=== PATIENT | male | born 2000 | race Caucasian/White ===

== ENCOUNTER 2023-07-20 16:18 | Outpatient (AMB) | payer OTHER, SELFPAY ==
--- NOTE | 2023-07-20 16:19 | A.OFFPC_ITS ---
Vital Signs 07/20/23 16:21 07/20/23 16:28 Height 5 ft 7 in Weight 138 lb BMI 21.6 BP 112/58 L 108/60 Blood Pressure Location Rt brachial Lt brachial Position Sitting Sitting Pulse 98 Pulse Source Pulse Oximeter Pulse Oximetry (%) 99 Oxygen Delivery Method Room Air Intake Visit Reasons: Annual PE Rescheduled+ NEEDS PHQ9/THRIVE Intake Note: Pt is here today for PE. Allergies No Known Allergies Allergy (Verified 07/20/23 16:21) Medication List - Last Re[facility]20[facility]23 [facility] albuterol sulfate 90 mcg/actuation 1 inh inhalation Q6-8H PRN cetirizine 10 mg PO DAILY fluticasone propionate 50 mcg/actuation 1 spray intranasal DAILY Tobacco use date assessed: 07/20/23 Dental Screening Dental Screen Date: 07/20/23 Did you have a dental visit in the last 12 months?: Yes Did you have a dental problem in the last 6 months where you did not have access to dental care?: No Was dental information given to patient?: Patient has dentist HPI Annual PE Rescheduled+ NEEDS PHQ9/THRIVE HPI Details Pt is here for a PE. Will order labs. Pt reports being bit by a tick approximately 1 year ago. He was treated for lyme but not tested. Will order tick testing. Pt is requesting STD testing, though denies any symptoms. Will order testing. [facility] Family History Father No problems noted. Mother No problems noted. Social History Housing: House Patient Tobacco Use Status: Current everyday Tobacco user e-Cigarette/Vaping Use: Currently Using Current occupational status: employed Cognitive needs: No Hearing needs: No Vision needs: No Questionnaire PHQ-9 Over the last 2 weeks, how often have you been bothered by any of the following problems? 1. Little interest or pleasure in doing things: not at all 2. Feeling down, depressed, or hopeless: not at all 3. Trouble falling or staying asleep, or sleeping too much: not at all 4. Feeling tired or having little energy: not at all 5. Poor appetite or overeating: not at all 6. Feeling bad about yourself - or that you are a failure or have let yourself or your family down: not at all 7. Trouble concentrating on things, such as reading the newspaper or watching television: not at all 8. Moving or speaking so slowly that other people could have noticed. Or the opposite - being so fidgety or restless that you have been moving around a lot more than usual: not at all 9. Thoughts that you would be better off or of hurting yourself in some way: not at all Total score: 0 Depression Screening Interpretation: Negative Depression Screening Done: Yes Source: Developed by Drs. Damian Batista, Syl Hurd, Matthew Santos and colleagues, with an educational jesus from [employer]. Thrive Questionnaire Date Thrive assessed: 07/20/23 I am a: Patient What is your living situation today?: I have a steady place to live Within the past 12 months, did the food you bought not last and you didn't have the money to get more?: Never true Within the past 12 months, did you worry whether your food would run out before you got money to buy more?: Never true Do you have trouble paying for medicines?: No Do you have trouble getting transportation to medical appointments?: No Do you have trouble paying your heating and electricity bill?: No Do you have trouble taking care of your child, family member or friend?: No Do you have trouble with day-to-day activities such as bathing, preparing meals, shopping, managing finances, etc.?: No Are you currently unemployed and looking for a job?: Yes Are you interested in more education?: No Please select the resources that you would like help with: Job search/training AUDIT C Alcohol Use Questionnaire (AUDIT-C) 1. How often do you have a drink containing alcohol?: Never 3. How often do you have six or more drinks on one occasion?: Never Total Score: 0 RODDY-7 AMB Questionnaire RODDY-7 Date RODDY - 7 assessed: 07/20/23 Feeling nervous, anxious, or on edge: 0 = Not at all Not being able to stop or control worryin = Not at all Worrying too much about different things: 0 = Not at all Trouble relaxin = Not at all Being so restless that it is hard to sit still: 0 = Not at all Becoming easily annoyed or irritable: 0 = Not at all Feeling afraid as if something awful might happen: 0 = Not at all Total RODDY-7 score (0-4 normal; 5-9 mild; 10-14 moderate; 15-21 severe): 0 Source: Developed by Drs. Damian Batista, Syl Hurd, Matthew Santos and colleagues, with an educational jesus from [employer]. Review of Systems Const Denies chills and Denies fever(s) Eyes Denies blurry vision ENT Denies vertigo, Denies dizziness and Denies sore throat Card Denies chest pain at rest, Denies chest pain with activity, Denies diaphoresis, Denies dyspnea and Denies dyspnea on exertion Resp Denies cough, Denies dyspnea, Denies dyspnea on exertion and Denies wheezing GI Denies abdominal pain, Denies melena, Denies hematochezia, Denies constipation, Denies diarrhea and Denies loose stools Denies hematuria Musc Denies numbness and Denies tingling Skin/Breast Denies lesions Neuro Denies vertigo, Denies dizziness, Denies numbness and Denies tingling Psych Denies anxiety, Denies depression, Denies homicidal ideation, Denies suicidal ideation and Denies other (substance abuse) Aller/Immun Denies wheezing Physical exam (Primary Care) Vital Signs: Last Vital Signs Pulse 98 07/20/23 16:21 BP 108/60 07/20/23 16:28 Pulse Ox 99 07/20/23 16:21 Oxygen Delivery Method Room Air 07/20/23 16:21 BMI result Body Mass Index 21.6 Tobacco/Smoking Status: Tobacco use Status Tobacco use date assessed 07/20/23 07/20/23 16:28 Patient Tobacco Use Status Current everyday Tobacco 07/20/23 16:28 Tobacco use type 07/20/23 16:28 e-Cigarette/Vaping Use Currently Using 07/20/23 16:28 PHQ-9: PHQ-9 Score PHQ-9: Total score 0 07/20/23 16:59 Depression Screening Interpretation: Negative Thrive Assessment: Date of Thrive Assessment Date Thrive assessed 07/20/23 07/20/23 16:59 Const General: cooperative Nutritional Appearance: well nourished Orientation/consciousness: patient oriented x3 HENMT Head: Yes normal to inspection, Yes normocephalic and Yes atraumatic Ears: TM's normal bilaterally Eyes General: appearance normal, both eyes and all related structures Alignment and Position: alignment normal and position normal Neck Neck: Yes normal visual inspection and Yes no lymphadenopathy Thyroid: Thyroid normal Resp Effort & Inspection: normal respiratory effort Auscultation: clear to auscultation bilaterally Cardio Rate: regular rate Rhythm: regular rhythm Heart sounds: S1 normal heart sound present, S2 normal heart sound present and no murmurs GI Palpation (GI): Soft to palpation and nontender Auscultation: normal bowel sounds Male General Exam: Yes normal external exam Penis: normal penis Scrotum: scrotum normal, testes descended bilaterally and no inguinal hernias Testes: no testicular mass Skin Rashes: no rashes Neuro General: patient oriented x3, moves all extremities, no focal motor deficits and deep tendon reflexes 2+ bilaterally Romberg Test: Negative Psych Appearance: grossly normal Mental Status: mental status grossly normal Speech and movement: Normal speech and movement present Affect: normal affect Attitude: cooperative Thought process: Normal thought process present Thought content: Normal thought content present Insight: Good insight present (Psych) Judgement: Good judgement present (Psych) Assessment and Plan Assessment & Plan (1) Physical exam: Code(s): Z00.00 - Encounter for general adult medical examination without abnormal findings Plan: Labs ordered (2) Screening for STDs (sexually transmitted diseases): Code(s): Z11.3 - Encounter for screening for infections with a predominantly sexual mode of transmission Plan: Labs ordered Plan The patient agreed to the use of a medical donation professional for this encounter. Scribed for SHERI Infante by Jessika Barnett medical donation professional, on 07/20/2023 at 16:40 EST. Orders: Orders Comprehensive [place]. Panel Fast Today Z00.00 - Encounter for general adult medical examination without abnormal findings TSH reflex Free T4 Today Z00.00 - Encounter for general adult medical examination without abnormal findings UA CC w/rflx Micro + Cult Today Z00.00 - Encounter for general adult medical examination without abnormal findings Tick-borne Disease Molecular Today Z00.00 - Encounter for general adult medical examination without abnormal findings HIV Ab/Ag Today Z11.3 - Encounter for screening for infections with a predominantly sexual mode of transmission Herpes Simplex Virus Ab IgG Today Z11.3 - Encounter for screening for infections with a predominantly sexual mode of transmission Complete Blood Count Auto Diff Today Z00.00 - Encounter for general adult medical examination without abnormal findings Lipid Panel Today Z00.00 - Encounter for general adult medical examination without abnormal findings Syphilis Screen Today Z11.3 - Encounter for screening for infections with a predominantly sexual mode of transmission CT NG by PCR Today Z11.3 - Encounter for screening for infections with a predominantly sexual mode of transmission Hepatitis A,B,C Profile Today Z11.3 - Encounter for screening for infections with a predominantly sexual mode of transmission Coding Level of Care Code Est Pt Prev Care 18-39y(26160) Diagnoses Physical exam Z00.00 Screening for STDs (sexually transmitted diseases) Z11.3
[2023-07-20 16:21] VITALS: BP 112/58; PULSE 98; O2SAT 99; BMI 21.6
[2023-07-20 16:28] VITALS: BP 108/60
== END 2023-07-20 16:59 | disposition home or self-care (01) ==
PROVIDERS: Visit Provider Nurse Practitioner Family
DX: Z00.00 Encounter for general adult medical examination without abnormal findings (principal); Z11.3 Encounter for screening for infections with a predominantly sexual mode of transmission
CPT/HCPCS: 99395

== ENCOUNTER 2023-07-26 11:07 | Outpatient (REF) | payer OTHER, SELFPAY ==
[2023-07-26 13:08] LABS: MANUAL DIFF FLAG NO
[2023-07-26 13:27] LABS: Basophils Absolute Auto 0.1 X10*3/uL (0.0-0.2); Basophils Percent Auto 1.2 % (0-2); Eosinophils Absolute Auto 0.1 X10*3/uL (0.0-0.4); Eosinophils Percent Auto 1.9 % (0-4); Hematocrit 41.9 % (42.0-52.0); Hemoglobin 13.9 g/dl (14.0-18.0); Imm Gran Abs Auto 0.02 X10*3/uL (0.00-0.03); Imm Gran Pct Auto 0.5 % (0.0-0.4); Lymphocytes Absolute Auto 1.3 X10*3/uL (1.2-4.9); Lymphocytes Percent Auto 31.7 % (20-40); Mean Corpuscular HGB Conc 33.2 g/dl (31.0-36.0); Mean Corpuscular Hemoglobin 28.8 pg (27.0-33.0); Mean Corpuscular Volume 86.7 fL (80.0-98.0); Mean Platelet Volume 10.7 fL (9.4-12.4); Monocytes Absolute Auto 0.5 X10*3/uL (0.1-1.2); Monocytes Percent Auto 10.7 % (2-11); Neutrophils Absolute Auto 2.3 x10*3/uL (2.0-8.3); Platelet Count 236 X10*3/uL (160-400); Red Blood Count 4.83 X10*6/uL (4.60-5.80); Red Cell Distribution Width 12.6 % (11.0-16.0); White Blood Count 4.2 X10*3/uL (4.8-10.8)
[2023-07-26 13:40] LABS: Alanine Aminotransferase 12 U/L (0-40); Albumin Level 4.9 g/dL (3.5-5.0); Alkaline Phosphatase 70 U/L (39-117); Anion Gap 13 (12-20); Aspartate Amino Transferase 24 U/L (5-37); Bilirubin Total 0.4 mg/dL (0.0-1.0); Blood Urea Nitrogen 10 mg/dL (9-16); Calcium 9.6 mg/dL (8.4-10.2); Carbon Dioxide 25 mmol/L (22-29); Chloride 104 mmol/L (96-108); Cholesterol 156 mg/dL (<200); Estimated Glomerular Filt Rate > 60; Glucose Fasting 94 mg/dL (60-99); HDL Cholesterol 46 mg/dL (>40); LDL Cholesterol Calculated 100 mg/dL (<100); Potassium 4.1 mmol/L (3.3-5.1); Sodium 138 mmol/L (135-145); Total Protein 7.4 g/dL (6.5-8.0); Triglycerides 54 mg/dL (<150)
[2023-07-26 13:52] LABS: Syphilis Screen Nonreactive (Nonreactive)
[2023-07-26 13:57] LABS: TSH reflex Free T4 0.96 uIU/mL (0.32-4.0)
[2023-07-26 13:58] LABS: Appearance Urine Clear; Color Urine Yellow; Glucose Urine UA Negative (Negative); Leukocyte Esterase Urine Negative (Negative); Nitrite Urine Negative (Negative); PH 7.5 (5.0-9.0); Urine Blood Negative (Negative); Urine Ketones Negative (Negative); Urine Protein Negative (Neg-Trace)
[2023-07-27 04:43] LABS: HBS Num1 0.46 mIU/mL (0-7.99); HBc Num1 0.05 S/CO (0.00-0.79); HBsAGNum1 0.28 S/CO (0.00-0.99); HIV AB/AG Nonreactive (Nonreactive); HIV Num 1 0.04 S/CO (0.00-0.99); Hepatitis A Antibody IgM 0.13 Index (0-0.79); Hepatitis B Core Antibody Nonreactive (Nonreactive); Hepatitis B Surface Antigen Negative (Negative); ~HepC Num1 0.12 S/CO (0.00-0.79); ~Hepatitis A Antibody IgM Nonreactive (Nonreactive); ~Hepatitis B Surface Antibody NONREACTIVE (Nonreactive); ~Hepatitis C Antibody Nonreactive (Nonreactive)
[2023-07-27 23:04] LABS: A. Phagocytphilium DNA,RT-PCR NOT DETECTED (NOT DETECTED); Babesia Microti DNA, RT-PCR NOT DETECTED (NOT DETECTED); Borrelia Miyamotoi,DNA RT-PCR NOT DETECTED (NOT DETECTED); E.Chaffeensis DNA RT-PCR NOT DETECTED (NOT DETECTED); Lyme(Borrelia ssp)DNA RT-PCR NOT DETECTED (NOT DETECTED)
[2023-07-28 22:18] LABS: Herpes Simplex Type 1 IgG <0.90 index; Herpes Simplex Type 2 IgG <0.90 index
== END 2023-07-26 11:08 | disposition home or self-care (01) ==
LOC: HO.HMGCLDS 11:07
PROVIDERS: PCP Nurse Practitioner Family; Visit Provider Nurse Practitioner Family
DX: Z00.00 Encounter for general adult medical examination without abnormal findings (principal); Z11.3 Encounter for screening for infections with a predominantly sexual mode of transmission; Z11.59 Encounter for screening for other viral diseases; Z13.220 Encounter for screening for lipoid disorders; Z13.29 Encounter for screening for other suspected endocrine disorder
CPT/HCPCS: 36415; 80053; 80061; 81003; 84443; 85025; 86695; 86696; 86704; 86706; 86709; 86780; 86803; 87340; 87389; 87468; 87469; 87478; 87484; 87798

== ENCOUNTER 2024-07-24 09:08 | Outpatient (AMB) | payer OTHER, SELFPAY ==
[2024-07-24 09:13] VITALS: BP 110/70; PULSE 72; O2SAT 98; BMI 21.6
--- NOTE | 2024-07-24 09:13 | A.OFFPC_ITS ---
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 Accompanied by: Self / Same As Patient Allergies No Known Allergies Allergy (Verified 07/24/24 09:14) Medication List - Last Reconciled 07/24/24 by Gunnar Lay [facility]- albuterol sulfate 90 mcg/actuation 1 inh inhalation Q6-8H PRN cetirizine 10 mg PO DAILY fluticasone propionate 50 mcg/actuation 1 spray intranasal DAILY Tobacco use date assessed: 07/24/24 Dental Screening Dental Screen Date: 07/24/24 Did you have a dental visit in the last 12 months?: Yes Did you have a dental problem in the last 6 months where you did not have access to dental care?: No Was dental information given to patient?: Patient has dentist HPI PE HPI Details History of Present Illness The patient is a 23-year-old male presenting for a routine physical examination. Health Maintenance - Discussion on the importance of fastin g before lab work and ensuring adequate hydration. - Reminder to report to the lab technici an all tests ordered from prior appointments. - Suggestion to receive a flu vaccine wa s made but declined by the patient. Social History - Recreational activity: Enjoys fishing. - Cannabis use: History of cannabis use, both in smoke and wax form. - Patient is trying to reduce smoking du e to seasonal changes. Review of Systems - General: Denies fever, chills, weight loss. - Gastrointestinal: Denies nausea, vomit ing, diarrhea, constipation, blood in stool. - Respiratory: Denies chest pain. - Skin: Reports improvement in finger sw elling after treatment. - Psychiatric: Reports mood changes duri ng specific seasons, denies severe depression. denies anxiety Physical Exam General: Cooperative, healthy appearing, comfortable, no acute distress and well developed Orientation: Patient oriented x3 Limitations: No limitations Head: Normal to inspection Ears: small amt of cerumen noted bilat Nose: Normal external nose present Face and sinus: Normal facial exam Eyes: Appearance normal, both eyes and all related structures Neck: Normal visual inspection and Yes full ROM Respiratory: Normal respiratory effort and able to speak in complete sentences. Clear to auscultation bilaterally Cardiovascular: Regular rate and rhythm. Normal S1 and S2 GI: Normal to inspection. Soft to palpation and nontender Skin: No rashes or lesions noted Neuro: Patient oriented x3 Extremities: Normal to inspection Results Plan - Seasonal Affective Disorder: Monitor s ymptoms and consider environmental or lifestyle changes to mitigate seasonal effects. - Earwax Impaction: Recommend usage of a n [id number] earwax removal kit, such as Debrox, to manage the wax build-up. - Routine Health Maintenance: Continue r egular wellness checks and complete ordered lab tests after fasting. Patient was informed and verbally consented to the use of an ambient scribe for clinic note documentation during this visit. Discussion Notes The patient was advised on the importance of proper ear cleaning techniques and the use of earwax removal kits to avoid compaction problems. Regarding cannabis use, I addressed the patient?s attempts to reduce use, offering support and advising on the benefits of reduction. The significance of staying hydrated prior to lab work was emphasized, ensuring fasting guidelines are followed. Influenza vaccination declined by the patient at this time. Patient Instructions - Follow earwax removal instructions as provided on the kit packaging. Avoid using Q-tips inside the ear canal. - Maintain hydration and adhere to fasti ng requirements before attending lab appointments. - Continue observing your own mental hea lth patterns associated with seasonal changes and consider discussing measures to alleviate symptoms. - Perform self-testicular examinations r egularly and report any abnormalities. [facility] Surgical History S/P laparoscopic appendectomy Family History Father No problems noted. Mother No problems noted. Social History Housing: House Patient Tobacco Use Status: Current everyday Tobacco user e-Cigarette/Vaping Use: Currently Using Current occupational status: employed Cognitive needs: No Hearing needs: No Vision needs: No Questionnaire PHQ-9 Over the last 2 weeks, how often have you been bothered by any of the following problems? 1. Little interest or pleasure in doing things: not at all 2. Feeling down, depressed, or hopeless: not at all 3. Trouble falling or staying asleep, or sleeping too much: not at all 4. Feeling tired or having little energy: not at all 5. Poor appetite or overeating: not at all 6. Feeling bad about yourself - or that you are a failure or have let yourself or your family down: not at all 7. Trouble concentrating on things, such as reading the newspaper or watching television: not at all 8. Moving or speaking so slowly that other people could have noticed. Or the opposite - being so fidgety or restless that you have been moving around a lot more than usual: not at all 9. Thoughts that you would be better off or of hurting yourself in some way: not at all Total score: 0 Depression Screening Interpretation: Negative Depression Screening Done: Yes [id number] - PHQ-9 Billing: Yes Source: Developed by Drs. Damian Batista, Syl Hurd, Matthew Santos and colleagues, with an educational jesus from [employer]. Thrive Questionnaire Date Thrive assessed: 07/24/24 I am a: Patient What is your living situation today?: I have a steady place to live Within the past 12 months, did the food you bought not last and you didn't have the money to get more?: Never true Within the past 12 months, did you worry whether your food would run out before you got money to buy more?: Never true Do you have trouble paying for medicines?: No Do you have trouble getting transportation to medical appointments?: No Do you have trouble paying your heating and electricity bill?: No Do you have trouble taking care of your child, family member or friend?: No Do you have trouble with day-to-day activities such as bathing, preparing meals, shopping, managing finances, etc.?: No Are you currently unemployed and looking for a job?: Yes Are you interested in more education?: No Please select the resources that you would like help with: Job search/training Currently or been in a relationship where the following occur: No concerns reported and I choose not to answer THRIVE Score: 0 AUDIT C Alcohol Use Questionnaire (AUDIT-C) 1. How often do you have a drink containing alcohol?: Never 3. How often do you have six or more drinks on one occasion?: Never Total Score: 0 Score Reviewed/Action Taken: Yes RODDY-7 AMB Questionnaire RODDY-7 Date RODDY - 7 assessed: 07/24/24 Feeling nervous, anxious, or on edge: 0 = Not at all Not being able to stop or control worryin = Not at all Worrying too much about different things: 0 = Not at all Trouble relaxin = Not at all Being so restless that it is hard to sit still: 0 = Not at all Becoming easily annoyed or irritable: 0 = Not at all Feeling afraid as if something awful might happen: 0 = Not at all Total RODDY-7 score (0-4 normal; 5-9 mild; 10-14 moderate; 15-21 severe): 0 Source: Developed by Drs. Damian Batista, Syl Hurd, Matthew Santos and colleagues, with an educational jesus from [employer]. RODDY-7 Assessment Billing RODDY-7 Assessment Tool: RODDY-7 Assessment 60489 Physical exam (Primary Care) Vital Signs: Last Vital Signs Pulse 72 07/24/24 09:13 BP 110/70 07/24/24 09:13 Pulse Ox 98 07/24/24 09:13 BMI result Body Mass Index 21.6 Tobacco/Smoking Status: Tobacco use Status Tobacco use date assessed 07/24/24 07/24/24 09:15 Patient Tobacco Use Status Current everyday Tobacco 07/24/24 09:15 Tobacco use type 07/20/23 16:59 e-Cigarette/Vaping Use Currently Using 07/24/24 09:15 PHQ-9: PHQ-9 Score PHQ-9: Total score 0 07/24/24 09:15 Depression Screening Interpretation: Negative Thrive Assessment: Date of Thrive Assessment Date Thrive assessed 07/24/24 07/24/24 09:15 Currently or been in a relationship where the following occur: No concerns reported and I choose not to answer Coding Level of Care Code Est Pt Prev Care 18-39y(46153) Diagnoses Physical exam Z00.00 Screening for STDs (sexually transmitted diseases) Z11.3 Anemia D64.9 Additional Codes RODDY-7 Assessment Billing - RODDY-7 Assessment Tool: RODDY-7 Assessment [id number] ([id number]) PHQ-9 - 55985 - PHQ-9 Billing: Yes ([id number]) Assessment & Plan Assessment & Plan (1) Physical exam: Code(s): Z00.00 - Encounter for general adult medical examination without abnormal findings Category: Medical (2) Screening for STDs (sexually transmitted diseases): Code(s): Z11.3 - Encounter for screening for infections with a predominantly sexual mode of transmission Category: Medical (3) Anemia: Code(s): D64.9 - Anemia, unspecified Category: Medical Plan . Orders: Orders Comprehensive [place]. Panel Fast Today Z00.00 - Encounter for general adult medical examination without abnormal findings Lipid Panel Today Z00.00 - Encounter for general adult medical examination without abnormal findings CT NG by PCR Today Z11.3 - Encounter for screening for infections with a predominantly sexual mode of transmission Syphilis Screen Today Z11.3 - Encounter for screening for infections with a predominantly sexual mode of transmission IRON PROFILE Today D64.9 - Anemia, unspecified Ferritin Today D64.9 - Anemia, unspecified Reticulocyte Count Today D64.9 - Anemia, unspecified Lactate Dehydrogenase Today D64.9 - Anemia, unspecified Complete Blood Count Auto Diff Today Z00.00 - Encounter for general adult medical examination without abnormal findings TSH reflex Free T4 Today Z00.00 - Encounter for general adult medical examination without abnormal findings UA CC w/rflx Micro + Cult Today Z00.00 - Encounter for general adult medical examination without abnormal findings HIV Ab/Ag Today Z11.3 - Encounter for screening for infections with a predominantly sexual mode of transmission Vitamin B12 and Folate Today D64.9 - Anemia, unspecified
--- OUTSIDE RECORDS SUMMARY | 2024-07-24 09:16 | XMS_ITS | Data Portability ---
Author Organization [place] [facility], [address] Address [address] [place] [address] Assessment No assessment recorded. Plan of Treatment Reminders Order Date Submit Date Provider Last Modified By Organization Details Last Modified Time Details Appointments None recorded. Lab urinalysis, dipstick 2022 023 [email or web address] 5 [facility] [address], [address] [place], [address], 3 17:56:35 chlamydia trachomatis + neisseria gonorrhoeae + trichomonas vaginalis DNA panel, JOHNY+probe, unspecified specimen 2022 023 [place] [facility] [address] [place] [address], [address], 3 08:08:51 culture, urine 2022 023 [facility], [address] [place] [address], [address], 3 06:07:53 unlisted lab - CT/GC/TV JOHNY+mycopla smas urine 2022 023 [facility], [address] [place] [address], [address], 3 10:06:19 Referral None recorded. Procedures None recorded. Surgeries None recorded. Imaging None recorded. Medication Orders doxycycline hyclate 100 mg capsule 2022 023 [email or web address] 5 [facility], [address] [place], [address], 16:59:52 doxycycline hyclate 100 mg tablet 2022 023 [facility] [address] [facility], [place], [address], 09:03:40 Patient TargetsNo targets recorded. Patient Instructions Encounter Date Encounter Id Patient Instructions Last Modified By Organization Details Last Modified Time 03/16/2023 [id number] urethritis: care instructions [email or web address] Not available 03/16/2023 17:57:54 gonorrhea and chlamydia: about these tests [email or web address] Not available 03/16/2023 17:57:54 gonorrhea: care instructions [email or web address] Not available 03/16/2023 17:57:54 chlamydia: care instructions [email or web address] Not available 03/16/2023 17:57:54 sexually transmitted disease education [email or web address] Not available 03/16/2023 17:57:54 safer sex: care instructions [email or web address] Not available 03/16/2023 17:57:54 Take the medication as prescribed. No sex until lab reports are known, partner treated if needed and you follow-up with your doctor. Follow-up with your doctor in one week. You will need additional testing for other sexually transmitted diseases such as HIV, hepatitis, syphilis which were not done at [facility]. Seek Emergency Medical evaluation for any worsening symptoms, particularly for high fever, shaking chills, rash, abdominal or flank pain, trouble urinating, testicular pain, vomiting, joint pain/swelling or redness. [email or web address] Not available 03/16/2023 18:00:15 05/04/2023 [id number] We are sending out STI testing for you today. STI testing can take anywhere from 5-7 days to be reported by the lab. If you do not hear from us regarding you testing after 7 days please contact our office. You should avoid any sexual contact until these results are received. If you test positive, and will need treatment will be provide guidance at that time. Remember, that if you are positive ALL sexual partners will need to be treated even before restarting sexual relations. If you don't you will be re infected. Thank you for using [facility], if you have any questions or concerns please reach out us. [email or web address] Not available 05/04/2023 08:48:40 Reason for Referral None Reported. Results Created Date Observation Date Name Description Value Unit Range Abnormal Flag Note LastModifiedBy Organization Detail LastModifiedTime 03/16/2003/19/2023 URINE CULTU RE, ROUTI NE urine culture, routine FINAL REPORT Not Available [facility] ([facility]) [address] [place], [address], 03/19/2023 06:07:53 03/16/2003/19/2023 URINE CULTU RE, ROUTI NE result 1 COMMEN T Cultu re shows less than 10,00 0 colon y formi ng units of bacte js per rebeca liter of urine . This colon y count is not gener ally consi dered to be clini lindsey signi fican t. Not Available [facility] ([facility]) [address] [place], [address], 03/19/2023 06:07:53 03/16/2003/19/2023 CT, NG, TRICH VAG BY JOHNY chlamydia by JOHNY POSITI VE negati ve abnormal Not Available [facility] ([facility]) [address] [place], [address], 03/19/2023 08:08:51 03/16/20 23 03/19/2023 CT, NG, TRICH VAG BY JOHNY gonococcus by JOHNY NEGATI VE negati ve Not Available [facility] ([facility]) [address] [place], [address], 03/19/2023 08:08:51 03/16/20 23 03/19/2023 CT, NG, TRICH VAG BY JOHNY trich vag by JOHNY NEGATI VE negati ve Not Available [facility] ([facility]) [address] [place], [address], 03/19/2023 08:08:51 03/16/20 23 03/16/2023 urina lysis , dipst ick Unknown Analyte Normal = light yellow Not Available [address] [place], [address], 03/16/2023 17:36:33 03/16/20 23 03/16/2023 urina lysis , dipst ick Unknown Analyte Yellow Not Available [address] [place] [address] [address] [place], [address], 03/16/2023 17:36:33 03/16/20 23 03/16/2023 urina lysis , dipst ick Unknown Analyte Normal = clear Not Available [facility] [address] [place], [address], 03/16/2023 17:36:33 03/16/20 23 03/16/2023 urina lysis , dipst ick Unknown Analyte Clear Not Available [address] [place] [address] [address] [place], [address], 03/16/2023 17:36:33 03/16/20 23 03/16/2023 urina lysis , dipst ick Unknown Analyte Normal = negati ve Not Available [facility] [address] [place], [address], 03/16/2023 17:36:33 03/16/20 23 03/16/2023 urina lysis , dipst ick Unknown Analyte Negati ve Not Available [address] [place], [address], 03/16/2023 17:36:33 03/16/20 23 03/16/2023 urina lysis , dipst ick Unknown Analyte Normal = Negati ve Not Available [address] [place], [address], 03/16/2023 17:36:33 03/16/20 23 03/16/2023 urina lysis , dipst ick Unknown Analyte Negati ve Not Available [address] [place], [address], 03/16/2023 17:36:33 03/16/20 23 03/16/2023 urina lysis , dipst ick Unknown Analyte Normal = Negati ve Not Available [address] [place], [address], 03/16/2023 17:36:33 03/16/20 23 03/16/2023 urina lysis , dipst ick Unknown Analyte Negati ve Not Available [address] [place], [address], 03/16/2023 17:36:33 03/16/20 23 03/16/2023 urina lysis , dipst ick Unknown Analyte Normal = 1.010, 1.015, 1.020 Not Available [facility] [address] [place], [address], 03/16/2023 17:36:33 03/16/20 23 03/16/2023 urina lysis , dipst ick Unknown Analyte 1.015 Not Available [address] [place] [address] [address] [place], [address], 03/16/2023 17:36:33 03/16/20 23 03/16/2023 urina lysis , dipst ick Unknown Analyte Normal = Negati ve Not Available [address] [place], [address], 03/16/2023 17:36:33 03/16/20 23 03/16/2023 urina lysis , dipst ick Unknown Analyte Trace- intact Not Available [address] [place], [address], 03/16/2023 17:36:33 03/16/20 23 03/16/2023 urina lysis , dipst ick Unknown Analyte Normal = 6.5, 7.0, 7.5, 8.0 Not Available [address] [place], [address], 03/16/2023 17:36:33 03/16/20 23 03/16/2023 urina lysis , dipst ick Unknown Analyte 7.[address] [facility] [address] [place], [address], 03/16/2023 17:36:33 03/16/20 23 03/16/2023 urina lysis , dipst ick Unknown Analyte Normal = Negati ve Not Available erica g[address] [place], [address], 03/16/2023 17:36:33 03/16/20 23 03/16/2023 urina lysis , dipst ick Unknown Analyte Negati ve Not Available [facility] [address] [place], [address], 03/16/2023 17:36:33 03/16/20 23 03/16/2023 urina lysis , dipst ick Unknown Analyte Normal = 0.2, 1.0 Not Available [facility] [address] [place], [address], 03/16/2023 17:36:33 03/16/20 23 03/16/2023 urina lysis , dipst ick Unknown Analyte 0.2 E.U./d L Not Available [facility] [place], [address], 03/16/2023 17:36:33 03/16/20 23 03/16/2023 urina lysis , dipst ick Unknown Analyte Normal = Negati ve Not Available [address] [place], [address], 03/16/2023 17:36:33 03/16/20 23 03/16/2023 urina lysis , dipst ick Unknown Analyte Negati ve Not Available [address] [place], [address], 03/16/2023 17:36:33 03/16/20 23 03/16/2023 urina lysis , dipst ick Unknown Analyte Normal = Negati ve Not Available [address] [place], [address], 03/16/2023 17:36:33 03/16/20 23 03/16/2023 urina lysis , dipst ick Unknown Analyte Negati ve Not Available _erica subramanian [address] [place], [address], 03/16/2023 17:36:33 05/04/20 23 05/06/2023 CT/GC /TV JOHNY+M YCOPL ASMAS URINE mycoplasma genitalium JOHNY NEGATI VE negati ve Not Available [facility] ([facility]) [address] [place], [address], 05/07/2023 10:06:19 05/04/20 23 05/06/2023 CT/GC /TV JOHNY+M YCOPL ASMAS URINE mycoplasma hominis JOHNY NEGATI VE negati ve Not Available [facility] ([facility]) [address] [place], [address], 05/07/2023 10:06:19 05/04/20 23 05/06/2023 CT/GC /TV JOHNY+M YCOPL ASMAS URINE ureaplasma spp JOHNY NEGATI VE negati ve Not Available [facility] ([facility]) [address] [place], [address], 05/07/2023 10:06:19 05/04/20 23 05/07/2023 CT/GC /TV JOHNY+M YCOPL ASMAS URINE trich vag by JOHNY NEGATI VE negati ve Not Available [facility] ([facility]) [address] [facility], [place], [address], 05/07/2023 10:06:19 05/04/20 23 05/07/2023 CT/GC /TV JOHNY+M YCOPL ASMAS URINE chlamydia trachomatis, JOHNY NEGATI VE negati ve Not Available [facility] ([facility]) [address] [facility], [place], [address], 05/07/2023 10:06:19 05/04/20 23 05/07/2023 CT/GC /TV JOHNY+M YCOPL ASMAS URINE neisseria gonorrhoeae, JOHNY NEGATI VE negati ve Not Available [facility] ([facility]) [address] [facility], [place], [address], 05/07/2023 10:06:19 Result Notes None recorded. Problems Name Problem SNOMED Code Status Onset Date Resolution Date Notes Provider Name and Address Organization Details Recorded Time Asthma 813607618 Completed 023 03/16/2023 [place] [facility] 3 17:22:26 Problem Notes None recorded. Medical Equipment None Reported. Allergies No known drug allergies Medications Name Sig Start Date Stop Date Status Note LastModified by Organization Details LastModified Time doxycycline hyclate 100 mg capsule TAKE ONE CAPSULE BY MOUTH TWICE A DAY FOR 7 DAYS active Not Available Not Available No t Available prednisone 50 mg tablet TAKE ONE TABLET BY MOUTH EVERY DAY FOR 4 DAYS 03/16 completed Not Available Not Available Not Available doxycycline hyclate 100 mg tablet Take 1 tablet twice a day by oral route for 7 days. active Not Available Not Available No t Available Ventolin HFA 90 mcg/actuati on aerosol inhaler TAKE 1-2 PUFFS EVERY 4 HOURS NEEDED FOR WHEEZING active Not Available Not Available No t Available Aerochamber Plus Flow-Vu USE WITH ALBUTEROL DIRECTED 03/16 completed Not Available Not Available Not Available Vitals Date Recorded Body height Respiratory rate Body mass index (BMI) Body weight Oxygen saturation Oxygen saturation in Arterial blood by Pulse oximetry Heart rate Body temperature Systolic blood pressure Diastolic blood pressure Provider Name and Address Organization Details Last Updated DateTime 3 167.64 cm 18 /min 20.2 kg/m2 89278.0 5 g 98 % 98 % 83 /min 98.3 [degF] 99 mm[Hg] 60 mm[Hg] NED BRODY [facility] 3 17:28:30 Date Recorded Body height Body mass index (BMI) Body weight Heart rate Oxygen saturation Oxygen saturation in Arterial blood by Pulse oximetry Body temperature Systolic blood pressure Diastolic blood pressure Provider Name and Address Organization Details Last Updated DateTime 3 167.64 cm 21 kg/m2 67303.0 1 g 67 /min 100 % 100 % 98.4 [degF] 98 mm[Hg] 60 mm[Hg] UZAIR GR NP [address], [place], [address], [facility] 3 08:37:30 Social History Question Answer Notes LastModified by Naytevizat ion Details LastModified Time Tobacco Smoking Status Never Smoker NED BRODY [facility], [facility] 03/16/2023 17:23:26 What Is Your Level Of Alcohol Consumption? None Information not available 03/16/2023 Are You Currently Employed? Yes Information not available 03/16/2023 Which Illicit Or Recreational Drugs Have You Used? Marijuana Information not available 03/16/2023 Do You Use Any Illicit Or Recreational Drugs? Yes Information not available 03/16/2023 Have You Recently Traveled Abroad? No Information not available 03/16/2023 Are You Currently In School? No Information not available 03/16/2023 Sex: Unknown Functional Status None recorded. Mental Status None recorded. Family History Relationship Description Onset Age of this Age Resolved Age Notes LastModified by Organization Details LastModified Time Father No current problems or disability [email or web address] Not available 03/2023 17:22:42 Mother No current problems or disability [email or web address] Not available 03/2023 17:22:43 Paternal Grandmother Diabetes mellitus [email or web address] Not available 03/16 17:23:00 Medical History No medical history recorded. Past Encounters Encounter ID Performer Location Encounter Start Date Encounter Closed Date Diagnosis/Indication Diagnosis SNOMED-CT Code Diagnosis ICD10 Code [id number] [address] [place] [address] 05/02/2022 16:11:57 05/02/2022 16:29:49 [id number] Ana Silva MD [facility] [address] [place] [address] 03/16/2023 16:27:12 03/16/2023 18:04:44 Urethritis [id number] N34.2 [id number] [place] [facility] [address] [address] [place] [address] 05/04/2023 08:05:57 05/04/2023 08:50:30 Chlamydial infection 850368837 A74.9 Health Concerns Section Related Observation LastModified by Organization Detai ls LastModified Time None Recorded Concern Status LastModified by Organization Details LastModified Time None Recorded Advance Directives Directive None Recorded Payers Encounter Date Sequence Insurance Name Policy Number Policy Smith Covered Member ID Smith Member ID Guarantor Name 03/16/[address] [facility] (MEDICAID HMO) PATIENCEO Jam Hamiltonperto [id number] Max Lenard 05/04/2023 1 [facility] (MEDICAID HMO) [place] Max Lenard [id number] Max Lenard Notes Date Note Type Note Provider Name and Address Organization Details Recorded Time 3 text/html Urinary Problems-MaleReported bypatient.source of patient informationInformation obtained from patient; Patient arrived at Urgent Care ambulatory Location:penis Quality:burning Severity:moderate Duration:constant; 2 weeks. Onset/Timing:gradual Context:sexually active;unprotected intercourse Modifying Factors:nothing gives relief Associated Symptoms:no penile lesions/sores; no scrotal lesions/sores; no penile discharge; no flank pain; no jaundice; no blood in the urine; no change in urine appearance; no urine odor; no fever/chills; no fatigue; no myalgia;burning sensation during urinationNotes:22 year old male presenting for evaluation of dysuria for the past 2 weeks. He was informed that his partner tested positive for chlamydia 2 days ago. He had unprotected intercourse with this partner. No fever, chills, rash, swollen glands, eye symptoms, sore throat, fever, chills or joint pain/redness/swelling. No penile or scrotal lesions. No testicular pain, masses or swelling. No swollen glands. No nausea, vomiting, diarrhea, urinary frequency/urgency, hematuria, urethral discharge, abdominal or flank pain. The patient is requesting treatment only for chlamydia and to hold on additional treatment pending lab reports. Ana Silva MD [address] [place], [address], [facility] [facility] 03/17/2023 17:07:08 3 text/html Two months ago, patient was seen here and tested positive for chlamydia and was treated with doxy for 7 days. Partner was not adequately treated (she missed some days) and as a result patient worries he may be positive. Wonders whether he should be retested or get a second course of doxy. Denies any symptom. He was also asymptomatic when he was first tested positive. [place] [facility] [address] [place], [address], [facility] 05/04/2023 09:04:42
== END 2024-07-24 09:45 | disposition home or self-care (01) ==
PROVIDERS: PCP Nurse Practitioner Family; Visit Provider Nurse Practitioner Family
DX: Z00.00 Encounter for general adult medical examination without abnormal findings (principal); Z11.3 Encounter for screening for infections with a predominantly sexual mode of transmission; D64.9 Anemia, unspecified

== ENCOUNTER → 2024-07-24 09:08 | Outpatient (BNVA) | payer OTHER, SELFPAY | PROVIDERS: PCP Nurse Practitioner Family; Visit Provider Nurse Practitioner Family | DX: Z00.00 Encounter for general adult medical examination without abnormal findings (principal); Z11.3 Encounter for screening for infections with a predominantly sexual mode of transmission; D64.9 Anemia, unspecified | CPT/HCPCS: 96127; 99395 ==

== ENCOUNTER 2025-05-28 06:42 | Outpatient (AMB) | payer BC, SELFPAY ==
--- OUTSIDE RECORDS SUMMARY | 2025-05-28 06:51 | XMS_ITS | Encounter Summary ---
Author Organization [facility] Address [address] [place] [address] Phone Care Team Providers Care Blindstitch Lining Feller Name Role Phone Unavailable Primary Care Provider Unavailabl e Encounter Details Date Type Department Care Team (Late st Contact Info) Description 03/24/2017 Documentation [facility] Family Medicine [facility] [place], [place] [phone] Family Medicine, Physician [facility] [place] [address] Social History Tobacco Use Types Packs/Day Years Used Date Smoking Tobacco: Never Comments:Never smoker Sex and Gender Information Value Date Recorded Sex Assigned at Not on file Legal Sex Male 5:23 PM EDT Gender Identity Not on file Sexual Orientation Not on file documented as of this encounter Plan of Treatment Not on file documented as of this encounter Visit Diagnoses Not on filedocumented in this encounter
--- OUTSIDE RECORDS SUMMARY | 2025-05-28 06:51 | XMS_ITS | Encounter Summary ---
Author Organization [facility] Address [address] [place] [address] Phone Care Team Providers Care Relaster Name Role Phone Unavailable Primary Care Provider Unavailabl e Encounter Details Date Type Department Care Team (Late st Contact Info) Description 01/28/2016 Documentation [facility] [place], [place] [id number] Family Medicine, Physician [facility] [address] Social History Tobacco Use Types Packs/Day Years Used Date Smoking Tobacco: Never Assessed Sex and Gender Information Value Date Recorded Sex Assigned at Not on file Legal Sex Male 5:23 PM EDT Gender Identity Not on file Sexual Orientation Not on file documented as of this encounter Plan of Treatment Not on file documented as of this encounter Visit Diagnoses Not on filedocumented in this encounter
--- OUTSIDE RECORDS SUMMARY | 2025-05-28 06:51 | XMS_ITS | Encounter Summary ---
Author Organization [facility] Address [address] [place] [address] Phone Care Team Providers Care Glove Stitcher Name Role Phone Unavailable Primary Care Provider Unavailabl e Encounter Details Date Type Department Care Team (Late st Contact Info) Description 10/12/2016 Documentation [facility] [place], [place] [phone] Family Medicine, Physician [facility] [place] [address] Social History Tobacco Use Types Packs/Day Years [...]
--- OUTSIDE RECORDS SUMMARY | 2025-05-28 06:51 | XMS_ITS | Encounter Summary ---
Author Organization [facility] Address [address] [place] [address] Phone Care Team Providers Care Medical Device Sales Representative Name Role Phone Unavailable Primary Care Provider Unavailabl e Encounter Details Date Type Department Care Team (Late st Contact Info) Description 03/01/2017 Documentation EM Family Medicine [facility] [place], [place] [address] Family Medicine, Physician [facility] [place] [address] Social History Tobacco Use Types Packs/Day Years [...]
--- OUTSIDE RECORDS SUMMARY | 2025-05-28 06:51 | XMS_ITS | Encounter Summary ---
Author Organization [facility] Address [address] [place] [address] Phone Care Team Providers Care Senior Account Representative Name Role Phone Unavailable Primary Care Provider Unavailabl e Encounter Details Date Type Department Care Team (Late st Contact Info) Description 09/06/2013 Documentation [facility] Family [facility] [place], [place] [phone] Family Medicine, Physician [facility] [place] [address] Social History Tobacco Use Types Packs/Day Years [...]
--- OUTSIDE RECORDS SUMMARY | 2025-05-28 06:51 | XMS_ITS | Encounter Summary ---
Author Organization [facility] Address [address] [place] [address] Phone Care Team Providers Care Meal Packer Name Role Phone Unavailable Primary Care Provider Unavailabl e Encounter Details Date Type Department Care Team (Late st Contact Info) Description 09/26/2014 Documentation [facility] [place], [place] [phone] Family Medicine, Physician [facility] [place] [address] Social History Tobacco Use Types Packs/Day Years [...]
--- OUTSIDE RECORDS SUMMARY | 2025-05-28 06:51 | XMS_ITS | Encounter Summary ---
Author Organization [facility] Address [address] [place] [address] Phone Care Team Providers Care Call Center Support Consultant Name Role Phone Unavailable Primary Care Provider Unavailabl e Encounter Details Date Type Department Care Team (Late st Contact Info) Description 01/14/2017 Documentation EM Family Medicine [facility] [place], [place] [phone] Family Medicine, Physician [facility] [place] [address] Social History Tobacco Use Types Packs/Day Years [...]
--- OUTSIDE RECORDS SUMMARY | 2025-05-28 06:51 | XMS_ITS | Encounter Summary ---
Author Organization [facility] Address [address] [place] [address] Phone Care Team Providers Care Real Estate Assessor Name Role Phone Unavailable Primary Care Provider Unavailabl e Encounter Details Date Type Department Care Team (Late st Contact Info) Description 09/13/2014 Documentation [facility] Family [facility] [place], [place] [phone] Family Medicine, Physician [facility] [place] [address] Social History Tobacco Use Types Packs/Day Years [...]
--- OUTSIDE RECORDS SUMMARY | 2025-05-28 06:51 | XMS_ITS | Encounter Summary ---
Author Organization [facility] Address [address] [place] [address] Phone Care Team Providers Care Manager Group Home Name Role Phone Unavailable Primary Care Provider Unavailabl e Encounter Details Date Type Department Care Team (Late st Contact Info) Description 01/21/2017 Documentation EM Family Medicine [facility] [place], [place] [phone] Family Medicine, Physician [facility] [place] [address] Social History Tobacco Use Types Packs/Day Years [...]
--- OUTSIDE RECORDS SUMMARY | 2025-05-28 06:51 | XMS_ITS | Encounter Summary ---
Author Organization [facility] Address [address] [place] [address] Phone Care Team Providers Care Care Professional Name Role Phone Unavailable Primary Care Provider Unavailabl e Encounter Details Date Type Department Care Team (Late st Contact Info) Description 09/13/2014 Documentation [facility] [place], [place] [phone] Family Medicine, Physician [facility] [place] [address] Social History Tobacco Use Types Packs/Day Years [...]
--- OUTSIDE RECORDS SUMMARY | 2025-05-28 06:51 | XMS_ITS | Clinical Summary ---
Author Organization [facility] Address [address] [place] [address] Phone Care Team Providers Care Food Packer Name Role Phone Unavailable Primary Care Provider Unavailabl e Allergies No known active allergies Medications Nebulizers (COMP AIR ELITE COMPACT NEB) misc COMP-AIR ELITE COMPRESSOR SYST; use by Inhalation route every 4 - 6 hours for wheezing or cough as needed, please dispense with needed accessories.; 12/17/2015; Active 6 Active Somatropin (NORDITROPIN FLEXPRO) 5 MG/1.5ML solution NORDITROPIN FLEXPRO; inject (0.1MG/KG) by subcutaneous route every day up to a maximum of 8 mg; 5 MG/1.5 ML (3.3 MG/ML); 03/31/2016; Active 6 Active NORDITROPIN FLEXPRO 10 MG/1.5ML solution 7 7 Active PROAIR HFA 108 (90 BASE) MCG/ACT inhalerIndicatio ns:Mild intermittent asthma in adult without complication INHALE TWO PUFFS BY MOUTH EVERY 4 HOURS NEEDED FOR WHEEZING OR SHORTNESS OF BREATH 1 Units 8 Active fluticasone 50 MCG/ACT nasal sprayIndications :Seasonal allergic rhinitis Administer 2 sprays into each nostril daily. 1 Units 3 9 Active Cetirizine HCl (ZYRTEC ALLERGY) 10 MG capsuleIndicatio ns:Seasonal allergic rhinitis, unspecified trigger Take 1 capsule by mouth daily. 30 capsule 6 9 Active ketotifen 0.025 % ophthalmic solutionIndicati ons:Mild intermittent asthma in adult without complication Administer 1 drop into both eyes 2 (two) times a day. 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 Faile GH stimulation test 2014 and GH therapy initiated 09/2015 with improved growth velocity. 12/25 - Jam stopped the growth hormone 07/26. At [facility]/U endo agreed that it is fine tos top. They anticipate some growth will continue as bone age is still delayed. No further endocrine f/u. Allergic rhinitis 12/25/2013 Overview (04/26/2017): Responcs to Zuleima watson. Attention deficit hyperactivity disorder 011 Overview (04/26/2017): Treated with stimulants with moderate success Immunizations Immunization Administration Dates Next Due DTaP 5 10/09/2004, 2,03/23/2001,01/04,2000 HPV, Quadrivalent 08/15/2013,04/12/2013,02/02/20 13 Hep A, ped/adol 03/21/2014,03/31/2011 Hep B, ped/adol 05/23/2001,2000,2000 Hib (PRP-T) 11/28/2001, 1,01/04/2001,11/02 IPV 10/09/2004, 1,01/04/2001,11/02 Influenza Split 07/12/2012 Influenza, injectable, MDCK, preservative free, quadrivalent 08/26/2016 Influenza, injectable, quadrivalent 06/12/2015 Influenza, injectable, quadr ivalent, preservative free 08/31/2018,04/27/2017,07/04/2013 Influenza, intranasal, trivalent 03/31/2011 MMR 10/09/2004,09/01/2001 Meningococcal Conj (Menactra) MCV4P 04/27/2017,0 02/01/2013 Pneumococcal Conjugate 03/23/2001,01/04/2001, Tdap 02/01/2013 Varicella 01/31/2008,09/01/2001 Family History Medical History Relation Name Comments No Known Problems Brother William No Known Problems Father Jam No Known Problems Mother Cata Relation Name Status Comments Brother William Alive Brother: Alive and well Father Jam Alive Father: Alive a nd well Mother Cata Alive Mother: Asthma, Hyperlipidemia Other 1 uncle: ADD/ADHD Other 2 Family history of Asthma, Family history of Migraines, Family history of Diabetes mellitus Social History Tobacco Use Types Packs/Day Years Used Date Smoking Tobacco: Never Smokeless Tobacco: Never Tobacco Cessation:Counseling Given: Yes Comments:Never smoker Alcohol Use Standard Drinks/Week Comments No 0 (1 standard drink = 0.6 oz pur e alcohol) Hunger/Food Answer Date Recorded No 08/31/2018 Stable Housing Answer Date Recorded 0 08/31/2018 Transportation Concerns Answer Date Rec orded No 08/31/2018 Hazards in Home Answer Date Recorded No 08/31/2018 Financing Utilities Answer Date Recorde d No 08/31/2018 Safety at Home Answer Date Recorded No 08/31/2018 Outside Support Answer Date Recorded No 08/31/2018 Understanding Health Concerns Answer Da te Recorded No 08/31/2018 Financing Health Concerns Answer Date R ecorded No 08/31/2018 Missing School or Work Answer Date Mason rded No 08/31/2018 Sex and Gender Information Value Date Recorded Sex Assigned at Not on file Legal Sex Male 5:23 PM EDT Gender Identity Not on file Sexual Orientation Not on file Last Filed Vital Signs Vital Sign Reading Time Taken Comments Blood Pressure 106/70 08/31/2018 1:56 PM EST Pulse 84 08/31/2018 1:56 PM EST Temperature 36.8 C (98.3 F) 05/18/2017 10:16 AM EDT Respiratory Rate - - Oxygen Saturation 95% 10/07/2010 12:00 AM EST Inhaled Oxygen Concentration - - Weight 55.2 kg (121 lb 9.6 oz) 08/31/2018 1:56 P M EST Height 167.6 cm (5' 6 ) 08/31/2018 1:56 PM EST Body Mass Index 19.63 08/31/2018 1:56 PM EST Plan of Treatment Health Maintenance Due Date Last Done Comments DTaP,Tdap,and Td Vaccines (7 - Td or Tdap) 02/01/2023 02/01/2013, 10/09/2004, 02/27/2002, Additional history exists Influenza Vaccines (#1) 2025 08/31/19 19, 04/27/2017, 08/26/2016, Additional history exists COVID-19 Vaccine ( - 2024- season) 2025 Pneumococcal Vaccine Aged Out 03/23/2001, 01/04/2001, 2000 No longer eligible based on patient's age to complete this topic Hepatitis B Vaccines Completed 05/23/2001, 2000, 2000 HIB Vaccines Completed 11/28/2001, 03/09, 01/04/2001, Additional history exists IPV Vaccines Completed 10/09/2004, 03/09, 01/04/2001, Additional history exists MMR Vaccines Completed 10/09/2004, 09/01/2001 Varicella Vaccines Completed 01/31/2008, 09/01/2001 HPV Vaccines Completed 08/15/2013, 11/2012, 02/01/2013 Hepatitis A Vaccines Completed 03/21/2014, 03/31/20 11 Meningococcal Vaccine Completed 04/27/2017, 013 Men B Vaccine Aged Out No longer elig kavya based on patient's age to complete this topic
--- OUTSIDE RECORDS SUMMARY | 2025-05-28 06:51 | XMS_ITS | Encounter Summary ---
Author Organization [facility] Address [address] [place] [address] Phone Care Team Providers Care Manager Retail Store Name Role Phone Unavailable Primary Care Provider Unavailabl e Encounter Details Date Type Department Care Team (Late st Contact Info) Description 03/25/2017 Conversion Encounter [facility] - [address] [address] Social History Tobacco Use Types Packs/Day Years [...]
--- NOTE | 2025-05-28 07:50 | A.OFFPC_ITS ---
Intake Visit Reasons: talk about his adhd Allergies No Known Allergies Allergy (Verified 05/28/25 07:57) Medication List - Last Reconciled 05/28/25 by SHERI Tapia albuterol sulfate 90 mcg/actuation 1 inh inhalation Q6-8H PRN cetirizine 10 mg PO DAILY fluticasone propionate 50 mcg/actuation 1 spray intranasal DAILY Tobacco use date assessed: 07/24/24 Dental Screening Dental Screen Date: 07/24/24 HPI talk about his adhd HPI0 Details History of Present Illness The patient is a 24-year-old male presenting with symptoms of Attention Deficit Hyperactivity Disorder (ADHD). He was diagnosed with ADHD during childhood and has a history of using stimulant medications, which had varying degrees of effectiveness. Currently, he reports a lack of focus, which continues to impact his daily activities. Additionally, the patient is attempting to quit vaping and the use of tobacco products. He has been advised to start Wellbutrin SR, which may aid in managing both ADHD symptoms and nicotine dependence. Review of Systems - Cardiovascular: Denies chest pain. - Respiratory: Denies shortness of breat h. - Neurological: Reports lack of focus. Plan 1. Attention Deficit Hyperactivity Disor sommer (Adhd) The patient will be started on Wellbutrin SR to manage ADHD symptoms, as it has been known to be effective in some cases. He will monitor his response to the medication and report back in six weeks via the patient portal or by calling the office. 2. Nicotine Dependence Wellbutrin SR is also being initiated to assist with smoking cessation efforts. The patient is encouraged to continue his attempts to quit vaping and using tobacco products. Discussion Notes I discussed with the patient the use of Wellbutrin SR as a treatment option for both ADHD and nicotine dependence. We agreed on starting this medication and monitoring its effects over the next six weeks. The patient understands the importance of reporting any side effects or concerns through the patient portal or by contacting the office. Patient Instructions - Start taking Wellbutrin SR as prescrib ed. - Monitor your response to the medicatio n and report any side effects. - Continue efforts to quit vaping and us ing tobacco products. - Follow up in six weeks via the patient portal or by calling the office. [facility] Surgical History S/P laparoscopic appendectomy Family History Father No problems noted. Mother No problems noted. Social History Housing: House Patient Tobacco Use Status: Current everyday Tobacco user e-Cigarette/Vaping Use: Currently Using Current occupational status: employed Cognitive needs: No Hearing needs: No Vision needs: No Questionnaire Thrive Questionnaire Date Thrive assessed: 07/24/24 AUDIT C Alcohol Use Questionnaire (AUDIT-C) 2. How many drinks containing alcohol do you have on a typical day when you are drinking?: 3 or 4 3. How often do you have six or more drinks on one occasion?: Less than monthly Total Score: 2 RODDY-7 AMB Questionnaire RODDY-7 Date RODDY - 7 assessed: 07/24/24 Source: Developed by Drs. Damian Batista, Syl Hurd, Matthew Santos and colleagues, with an educational jesus from [employer]. Physical exam (Primary Care) Tobacco/Smoking Status: Tobacco use Status Tobacco use date assessed 07/24/24 05/28/25 07:51 Patient Tobacco Use Status Current everyday Tobacco 05/28/25 07:51 Tobacco use type 07/20/23 16:59 e-Cigarette/Vaping Use Currently Using 05/28/25 07:51 Thrive Assessment: Date of Thrive Assessment Date Thrive assessed 07/24/24 05/28/25 07:51 Telehealth Telehealth Telehealth Platform: [facility] Location of provider rendering services: practice address Location of patient: address on file Patient Identification confirmed using: Name, : Yes Telehealth method: video Patient verbally consented to treatment: Yes Patient verbally consented to billing insurance company: Yes Patient informed of any privacy concerns related to visit: Yes Minutes spent on Phone/Video with Pt.: 12 Coding Level of Care Code Tele Est Pt Level 3 (61941) Diagnoses ADHD F90.9 Vapes nicotine containing substance Z72.0 Assessment & Plan Assessment & Plan (1) ADHD: Code(s): F90.9 - Attention-deficit hyperactivity disorder, unspecified type Category: Medical (2) Vapes nicotine containing substance: Code(s): Z72.0 - Tobacco use Category: Social Hx Plan .
== END 2025-05-28 13:48 | disposition home or self-care (01) ==
LOC: HO.HMCC 06:43
PROVIDERS: PCP Nurse Practitioner Family; Visit Provider Nurse Practitioner Family
DX: F90.9 Attention-deficit hyperactivity disorder, unspecified type (principal); Z72.0 Tobacco use

== ENCOUNTER 2025-07-09 12:12 | Outpatient (REF) | payer BC, SELFPAY ==
[2025-07-09 13:23] LABS: MANUAL DIFF FLAG NO
[2025-07-09 13:45] LABS: Hematocrit 41.4 % (42.0-52.0); Hemoglobin 13.9 g/dl (14.0-18.0); Imm Gran Abs Auto 0.01 X10*3/uL (0.00-0.03); Imm Gran Pct Auto 0.2 % (0.0-0.4); Lymphocytes Absolute Auto 1.2 X10*3/uL (1.2-4.9); Mean Corpuscular HGB Conc 33.6 g/dl (31.0-36.0); Mean Corpuscular Hemoglobin 28.8 pg (27.0-33.0); Mean Corpuscular Volume 85.7 fL (80.0-98.0); NRBC Abs Auto 0.000 X10*3/uL (0.0-0.012); NRBC Pct Auto 0.0 /100WBC (0.0-0.2); Platelet Count 226 X10*3/uL (160-400); Red Blood Count 4.83 X10*6/uL (4.60-5.80); Reticulocytes Absolute 0.042 X10*6/uL (0.026-0.095); White Blood Count 4.0 X10*3/uL (4.8-10.8)
[2025-07-09 14:28] LABS: Alanine Aminotransferase 13 U/L (0-40); Albumin Level 5.1 g/dL (3.5-5.0); Alkaline Phosphatase 68 U/L (39-117); Anion Gap 11 (12-20); Aspartate Amino Transferase 29 U/L (5-37); Blood Urea Nitrogen 10 mg/dL (9-16); Calcium 9.5 mg/dL (8.4-10.2); Carbon Dioxide 26 mmol/L (22-29); Chloride 108 mmol/L (96-108); Cholesterol 146 mg/dL (<200); Estimated Glomerular Filt Rate > 60; Ferritin 63 ng/mL (20-250); HDL Cholesterol 48 mg/dL (>40); Iron 178 mcg/dL (45-160); Percent Iron Saturation 64 % (15-50); Potassium 3.9 mmol/L (3.3-5.1); Sodium 141 mmol/L (135-145); Total Iron Binding Capacity 278 mcg/dL (228-428); Total Protein 7.2 g/dL (6.5-8.0); Triglycerides 58 mg/dL (<150); Unsaturated Iron Binding 100 ug/dL
[2025-07-09 14:41] LABS: Folate 7.2 ng/mL (> or = 4.0); Vitamin B12 709 pg/mL (200-900)
--- OUTSIDE RECORDS SUMMARY | 2025-07-09 15:56 | XMS_ITS | Encounter Summary ---
Author Organization [facility] Address [address] [place] [address] Phone Care Team Providers Care Line Repairer Name Role Phone Unavailable Primary Care Provider Unavailabl e Encounter Details Date Type Department Care Team (Late st Contact Info) Description 01/28/2016 Documentation [facility] [place], [place] [id number] Family Medicine, Physician [facility] [place] [address] Social History Tobacco Use Types Packs/Day Years [...]
--- OUTSIDE RECORDS SUMMARY | 2025-07-09 15:56 | XMS_ITS | Encounter Summary ---
Author Organization [facility] Address [address] [place] [address] Phone Care Team Providers Care Patent Prosecution Paralegal Name Role Phone Unavailable Primary Care Provider Unavailabl e Encounter Details Date Type Department Care Team (Late st Contact Info) Description 09/26/2014 Documentation [facility] [place], [place] [id number] Family Medicine, Physician [facility] [place] [address] Social History Tobacco Use Types Packs/Day Years [...]
--- OUTSIDE RECORDS SUMMARY | 2025-07-09 15:56 | XMS_ITS | Encounter Summary ---
Author Organization [facility] Address [address] [place] [address] Phone Care Team Providers Care Pressroom Supervisor Name Role Phone Unavailable Primary Care Provider Unavailabl e Encounter Details Date Type Department Care Team (Late st Contact Info) Description 03/25/2017 Conversion Encounter [facility] - [address] [address] Social History Tobacco Use Types Packs/Day Years [...]
--- OUTSIDE RECORDS SUMMARY | 2025-07-09 15:56 | XMS_ITS | Encounter Summary ---
Author Organization [facility] Address [address] [place] [address] Phone Care Team Providers Care Traveling Repair Accountant Name Role Phone Unavailable Primary Care Provider Unavailabl e Encounter Details Date Type Department Care Team (Late st Contact Info) Description 09/13/2014 Documentation [facility] [place], [place] [id number] Family Medicine, Physician [facility] [place] [address] Social History Tobacco Use Types Packs/Day Years [...]
--- OUTSIDE RECORDS SUMMARY | 2025-07-09 15:56 | XMS_ITS | Encounter Summary ---
Author Organization [facility] Address [address] [place] [address] Phone Care Team Providers Care Chief Pharmacist Name Role Phone Unavailable Primary Care Provider Unavailabl e Encounter Details Date Type Department Care Team (Late st Contact Info) Description 01/14/2017 Documentation [facility] Family Medicine [facility] [place], [place] [id number] Family Medicine, Physician [facility] [place] [address] Social History Tobacco Use Types Packs/Day Years [...]
--- OUTSIDE RECORDS SUMMARY | 2025-07-09 15:56 | XMS_ITS | Encounter Summary ---
Author Organization [facility] Address [address] [place] [address] Phone Care Team Providers Care Chronic Condition Nurse Name Role Phone Unavailable Primary Care Provider Unavailabl e Encounter Details Date Type Department Care Team (Late st Contact Info) Description 03/01/2017 Documentation [facility] Family [facility] [place], [place] [id number] Family Medicine, [place] [address] Social History Tobacco Use Types Packs/Day Years [...]
--- OUTSIDE RECORDS SUMMARY | 2025-07-09 15:56 | XMS_ITS | Clinical Summary ---
Author Organization [facility] Address [address] [place] [address] Phone Care Team Providers Care Acupuncture Physician Name Role Phone Unavailable Primary Care Provider [...] rhinitis 12/25/2013 Overview (04/26/2017): Responcs to Zuleima awtson. Attention deficit hyperactivity disorder 011 Overview (04/26/2017): [...]
--- OUTSIDE RECORDS SUMMARY | 2025-07-09 15:56 | XMS_ITS | Encounter Summary ---
Author Organization [facility] Address [address] [place] [address] Phone Care Team Providers Care Real Estate Teacher Name Role Phone Unavailable Primary Care Provider Unavailabl e Encounter Details Date Type Department Care Team (Late st Contact Info) Description 03/24/2017 Documentation [facility] Family [facility] [place], [place] [phone] Family Medicine, Physician [address] [place] [id number] Social History Tobacco Use Types Packs/Day Years [...]
--- OUTSIDE RECORDS SUMMARY | 2025-07-09 15:56 | XMS_ITS | Encounter Summary ---
Author Organization [facility] Address [address] [place] [address] Phone Care Team Providers Care Director Of Medical Services Name Role Phone Unavailable Primary Care Provider Unavailabl e Encounter Details Date Type Department Care Team (Late st Contact Info) Description 10/12/2016 Documentation [facility] [place], [place] [phone] Family Medicine, Physician [place] [address] Social History Tobacco Use Types Packs/Day Years [...]
--- OUTSIDE RECORDS SUMMARY | 2025-07-09 15:56 | XMS_ITS | Encounter Summary ---
Author Organization [facility] Address [address] [place] [address] Phone Care Team Providers Care Outboard Technician Name Role Phone Unavailable Primary Care Provider Unavailabl e Encounter Details Date Type Department Care Team (Late st Contact Info) Description 09/13/2014 Documentation [facility] [place], [place] [phone] Family Medicine, Physician [facility] [place] [address] Social History Tobacco Use Types Packs/Day Years [...]
--- OUTSIDE RECORDS SUMMARY | 2025-07-09 15:56 | XMS_ITS | Encounter Summary ---
Author Organization [facility] Address [address] [place] [address] Phone Care Team Providers Care Senior Insight Manager Name Role Phone Unavailable Primary Care Provider Unavailabl e Encounter Details Date Type Department Care Team (Late st Contact Info) Description 09/06/2013 Documentation [facility] [place], [place] [phone] Family Medicine, Physician [facility] [place] [address] Social History Tobacco Use Types Packs/Day Years [...]
--- OUTSIDE RECORDS SUMMARY | 2025-07-09 15:56 | XMS_ITS | Encounter Summary ---
Author Organization [facility] Address [address] [place] [address] Phone Care Team Providers Care Caretaker Grounds Name Role Phone Unavailable Primary Care Provider Unavailabl e Encounter Details Date Type Department Care Team (Late st Contact Info) Description 01/21/2017 Documentation [facility] Family Medicine [facility] [place], [place] [phone] Family Medicine, Physician [facility] [place] [address] Social History Tobacco Use Types Packs/Day Years [...]
[2025-07-09 16:16] LABS: Appearance Urine Clear; Glucose Urine UA Negative (Negative); PH 7.0 (5.0-9.0); Specific Gravity - Urine 1.020 (1.005-1.025)
[2025-07-09 17:43] LABS: CT PCR Urine NOT DETECTED (Not Detect.); NG PCR Urine NOT DETECTED (Not Detect.)
[2025-07-10 07:52] LABS: HIV Num 1 0.06 S/CO (0.00-0.99)
[2025-07-10 07:54] LABS: Syphilis Screen Nonreactive (Nonreactive)
== END 2025-07-09 12:13 | disposition home or self-care (01) ==
LOC: HO.HMGCLDS 12:12
PROVIDERS: PCP Nurse Practitioner Family; Visit Provider Nurse Practitioner Family
DX: Z00.00 Encounter for general adult medical examination without abnormal findings (principal); Z20.2 Contact with and (suspected) exposure to infections with a predominantly sexual mode of transmission; Z11.4 Encounter for screening for human immunodeficiency virus [HIV]; Z13.6 Encounter for screening for cardiovascular disorders; D64.9 Anemia, unspecified
CPT/HCPCS: 36415; 80053; 80061; 81003; 82607; 82728; 82746; 83540; 83615; 84443; 85025; 85045; 86780; 87389; 87491; 87591

== ENCOUNTER 2025-07-10 13:12 | Outpatient (AMB) | payer BC, SELFPAY ==
[2025-07-10 13:15] VITALS: BP 122/70; PULSE 109; RESP 16; O2SAT 98; BMI 21.6
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
--- OUTSIDE RECORDS SUMMARY | 2025-07-10 15:10 | XMS_ITS | Clinical Summary ---
Author Organization [facility] Address [address] [place] [address] Phone Care Team Providers Care News Reel Cameraman Name Role Phone Unavailable Primary Care Provider [...]
--- OUTSIDE RECORDS SUMMARY | 2025-07-10 15:10 | XMS_ITS | Encounter Summary ---
Author Organization [facility] Address [address] [place] [address] Phone Care Team Providers Care Manager Servicing Name Role Phone Unavailable Primary Care Provider Unavailabl e Encounter Details Date Type Department Care Team (Late st Contact Info) Description 09/06/2013 Documentation [facility] [place] [id number] Family Medicine, Physician [facility] [place] [address] Social History Tobacco Use Types Packs/Day Years [...]
--- OUTSIDE RECORDS SUMMARY | 2025-07-10 15:10 | XMS_ITS | Encounter Summary ---
Author Organization [facility] Address [address] [place] [address] Phone Care Team Providers Care Technical Operations Vice President Name Role Phone Unavailable Primary Care Provider Unavailabl e Encounter Details Date Type Department Care Team (Late st Contact Info) Description 01/21/2017 Documentation [facility] Family Medicine [facility] [place], [place] [id number] Family Medicine, Physician [facility] [place] [address] Social History Tobacco Use Types Packs/Day Years [...]
--- OUTSIDE RECORDS SUMMARY | 2025-07-10 15:10 | XMS_ITS | Encounter Summary ---
Author Organization [facility] Address [address] [place] [address] Phone Care Team Providers Care Orthodontist Assistant Name Role Phone Unavailable Primary Care Provider Unavailabl e Encounter Details Date Type Department Care Team (Late st Contact Info) Description 03/01/2017 Documentation [facility] Family Medicine [facility] [place], [place] [id number] Family Medicine, Physician [facility] [place] [address] Social History Tobacco Use Types Packs/Day Years [...]
--- OUTSIDE RECORDS SUMMARY | 2025-07-10 15:10 | XMS_ITS | Encounter Summary ---
Author Organization [facility] Address [address] [place] [address] Phone Care Team Providers Care Inspector Tool Name Role Phone Unavailable Primary Care Provider Unavailabl e Encounter Details Date Type Department Care Team (Late st Contact Info) Description 10/12/2016 Documentation [facility] [place] [id number] Family Medicine, Phys[place] [facility] [place] [address] Social History Tobacco Use Types Packs/Day Years [...]
--- OUTSIDE RECORDS SUMMARY | 2025-07-10 15:10 | XMS_ITS | Data Portability ---
Author Organization [place] [facility], [address] Address [address] [place] [address] Assessment No assessment recorded. Plan of Treatment Reminders Order Date Submit Date Provider Last Modified By Organization Details Last Modified Time Details Appointments None recorded. Lab unlisted lab - CT/GC/TV JOHNY+mycopla smas urine 2022 023 [facility] (Centralized Electronic Ordering - All Locations), Patient Can Go To The Location Of Their Choice, [facility] 3 10:06:19 urinalysis, dipstick 2022 023 [email or web address] 5 [facility] [address], [address] [place], [address], 3 17:56:35 chlamydia trachomatis + neisseria gonorrhoeae + trichomonas vaginalis DNA panel, JOHNY+probe, unspecified specimen 2022 023 [facility], [address] [place] [address], [address], 3 08:08:51 culture, urine 2022 023 [facility], [address] [place], [address], 3 06:07:53 Referral None recorded. Procedures None recorded. Surgeries None recorded. Imaging None recorded. Medication Orders doxycycline hyclate 100 mg tablet 2022 023 [facility], [address] [place], [address], 3 09:03:40 doxycycline hyclate 100 mg capsule 2022 023 [email or web address] 5 [facility], [address] [place], [address], 16:59:52 Patient TargetsNo targets recorded. Patient Instructions Encounter Date Encounter Id Patient Instructions Last Modified By Organization Details Last Modified Time 03/16/2023 [id number] urethritis: care instructions [email or web address] Not available 03/16/2023 17:57:54 gonorrhea and chlamydia: about these tests Not available 03/16/2023 17:57:54 gonorrhea: care instructions [email or web address] Not available 03/16/2023 17:57:54 chlamydia: care instructions [email or web address] Not available 03/16/2023 17:57:54 sexually transmitted disease education [email or web address] Not available 03/16/2023 17:57:54 safer sex: care instructions [email or web address] Not available 03/16/2023 17:57:54 Take the medication as prescribed. No sex until lab reports are known, partner treated if needed and you follow-up with your doctor. Follow-up with your doctor in one week. You will need additional testing for other sexually transmitted diseases such as HIV, hepatitis, syphilis which were not done at [facility]. Seek Emergency Medical evaluation for any worsening symptoms, particularly for high fever, shaking chills, rash, abdominal or flank pain, trouble urinating, testicular pain, vomiting, joint pain/swelling or redness. [email or web address] Not available 03/16/2023 18:00:15 05/04/2023 [id number] We are sending out STI testing for [...] be re infected. Thank you for using [facility], if you have any questions or concerns please reach out us. [email or web address] Not available 05/04/2023 08:48:40 Reason for Referral None Reported. Results Created Date Observation Date Name Description Value Unit Range Abnormal Flag Note LastModifiedBy Organization Detail LastModifiedTime 03/16/2003/19/2023 URINE CULTU RE, ROUTI NE urine culture, routine FINAL REPORT Not Available [facility] ([facility]) [address] [place], [address], 03/19/2023 06:07:53 03/16/2003/19/2023 URINE CULTU RE, ROUTI NE result 1 COMMEN T Cultu re shows less than 10,00 0 colon y formi ng units of bacte js per rebeca liter of urine . This colon y count is not gener ally consi dered to be clini lindsey signi fican t. Not Available [facility] ([facility]) [address] [place], [address], 03/19/2023 06:07:53 03/16/2003/19/2023 CT, NG, TRICH VAG BY JOHNY chlamydia by JOHNY POSITI VE negati ve abnormal Not Available [facility] ([facility]) [address] [place], [address], 03/19/2023 08:08:51 03/16/2003/19/2023 CT, NG, TRICH VAG BY JOHNY gonococcus by JOHNY NEGATI VE negati ve Not Available [facility] ([facility]) [address] [place], [address], 03/19/2023 08:08:51 03/16/2003/19/2023 CT, NG, TRICH VAG BY JOHNY trich vag by JOHNY NEGATI VE negati ve Not Available [facility] ([facility]) [address] [place], [address], 03/19/2023 08:08:51 03/16/20 23 03/16/2023 urina lysis , dipst ick Unknown Analyte Normal = light yellow Not Available [facility] [place], [address], 03/16/2023 17:36:33 03/16/20 23 03/16/2023 urina lysis , dipst ick Unknown Analyte Yellow Not Available [id number] [place] [address] [address] [place], [address], 03/16/2023 17:36:33 03/16/20 23 03/16/2023 urina lysis , dipst ick Unknown Analyte Normal = clear Not Available [address] [place], [address], 03/16/2023 17:36:33 03/16/20 23 03/16/2023 urina lysis , dipst ick Unknown Analyte Clear Not Available [address] [place] [address] [address] [place], [address], 03/16/2023 17:36:33 03/16/20 23 03/16/2023 urina lysis , dipst ick Unknown Analyte Normal = negati ve Not Available [address] [place], [address], 03/16/2023 17:36:33 03/16/20 23 03/16/2023 urina lysis , dipst ick Unknown Analyte Negati ve Not Available [address] [place], [address], 03/16/2023 17:36:33 03/16/20 23 03/16/2023 urina lysis , dipst ick Unknown Analyte Normal = Negati ve Not Available [facility] [place], [address], 03/16/2023 17:36:33 03/16/20 23 03/16/2023 urina lysis , dipst ick Unknown Analyte Negati ve Not Available [address] [place], [address], 03/16/2023 17:36:33 03/16/20 23 03/16/2023 urina lysis , dipst ick Unknown Analyte Normal = Negati ve Not Available [address] [place], [address], 03/16/2023 17:36:33 03/16/20 23 03/16/2023 urina lysis , dipst ick Unknown Analyte Negati ve Not Available [address] [place], [address], 03/16/2023 17:36:33 03/16/20 23 03/16/2023 urina lysis , dipst ick Unknown Analyte Normal = 1.010, 1.015, 1.020 Not Available [address] [place], [address], 03/16/2023 17:36:33 03/16/20 23 03/16/2023 urina lysis , dipst ick Unknown Analyte 1.015 Not Available [address] [place] [address] [address] [place], [address], 03/16/2023 17:36:33 03/16/20 23 03/16/2023 urina lysis , dipst ick Unknown Analyte Normal = Negati ve Not Available [address] [place], [address], 03/16/2023 17:36:33 03/16/20 23 03/16/2023 urina lysis , dipst ick Unknown Analyte Trace- intact Not Available [address] [place], [address], 03/16/2023 17:36:33 03/16/20 23 03/16/2023 urina lysis , dipst ick Unknown Analyte Normal = 6.5, 7.0, 7.5, 8.0 Not Available [address] [place], [address], 03/16/2023 17:36:33 03/16/20 23 03/16/2023 urina lysis , dipst ick Unknown Analyte 7.0 Not Available [facility] [address] [place], [address], 03/16/2023 17:36:33 03/16/20 23 03/16/2023 urina lysis , dipst ick Unknown Analyte Normal = Negati ve Not Available [address] [place], [address], 03/16/2023 17:36:33 03/16/20 23 03/16/2023 urina lysis , dipst ick Unknown Analyte Negati ve Not Available [address] [place], [address], 03/16/2023 17:36:33 03/16/20 23 03/16/2023 urina lysis , dipst ick Unknown Analyte Normal = 0.2, 1.0 Not Available [address] [place], [address], 03/16/2023 17:36:33 03/16/20 23 03/16/2023 urina lysis , dipst ick Unknown Analyte 0.2 E.U./d L Not Available [address] [place], [address], 03/16/2023 17:36:33 03/16/20 23 03/16/2023 urina lysis , dipst ick Unknown Analyte Normal = Negati ve Not Available [address] [place], [address], 03/16/2023 17:36:33 03/16/20 23 03/16/2023 urina lysis , dipst ick Unknown Analyte Negati ve Not Available [address] [place], [address], 03/16/2023 17:36:33 03/16/20 23 03/16/2023 urina lysis , dipst ick Unknown Analyte Normal = Negati ve Not Available [address] [place], [address], 03/16/2023 17:36:33 03/16/20 23 03/16/2023 urina lysis , dipst ick Unknown Analyte Negati ve Not Available [facility] [address] [address] [place], [address], 03/16/2023 17:36:33 05/04/20 23 05/06/2023 CT/GC /TV JOHNY+M YCOPL ASMAS URINE mycoplasma genitalium JOHNY NEGATI VE negati ve Not Available [facility] ([facility]) [address] [place], [address], 05/07/2023 10:06:19 05/04/20 23 05/06/2023 CT/GC /TV JOHNY+M YCOPL ASMAS URINE mycoplasma hominis JOHNY NEGATI VE negati ve Not Available [facility] ([facility]) [address] [place], [address], 05/07/2023 10:06:19 05/04/20 23 05/06/2023 CT/GC /TV JOHNY+M YCOPL ASMAS URINE ureaplasma spp JOHNY NEGATI VE negati ve Not Available [facility] ([facility]) [address] [place], [address], 05/07/2023 10:06:19 05/04/20 23 05/07/2023 CT/GC /TV JOHNY+M YCOPL ASMAS URINE trich vag by JOHNY NEGATI VE negati ve Not Available [facility] ([facility]) [address] [facility], [place], [address], 05/07/2023 10:06:19 05/04/20 23 05/07/2023 CT/GC /TV JOHNY+M YCOPL ASMAS URINE chlamydia trachomatis, JOHNY NEGATI VE negati ve Not Available [facility] ([facility]) [address] [facility], [place], [address], 05/07/2023 10:06:19 05/04/20 23 05/07/2023 CT/GC /TV JOHNY+M YCOPL ASMAS URINE neisseria gonorrhoeae, JOHNY NEGATI VE negati ve Not Available [facility] ([facility]) [address] [facility], [place], [address], 05/07/2023 10:06:19 Result Notes None recorded. Problems Name Problem SNOMED Code Status Onset Date Resolution Date Notes Provider Name and Address Organization Details Recorded Time Asthma [id number] Completed 023 03/16/2023 [place] - [facility] 17:22:26 Problem Notes None recorded. Medical Equipment [...] Vitals Date Recorded Body height Respiratory rate Pain severity - 0-10 verbal numeric rating [Score] - Reported Body mass index (BMI) Body weight Oxygen saturation Heart rate Body temperature Systolic And Diastolic Provider Name and Address Organization Details Last Updated DateTime 3 167.64 cm 18 /min 3 20.2 kg/m2 34924.0 5 g 98 % 83 /min 98.3 [degF] 99/60 mm[Hg] NED BRODY [place] - [facility] 3 17:28:30 Date Recorded Body height Body mass index (BMI) Body weight Heart rate Oxygen saturation Body temperature Systolic And Diastolic Provider Name and Address Organization Details Last Updated DateTime 3 167.64 cm 21 kg/m2 00912.0 1 g 67 /min 100 % 98.4 [degF] 98/60 mm[Hg] UZAIR GR NP [address], [place], [address], [place] - [facility] 3 08:37:30 Social History Question Answer Notes LastModified by Organizat ion Details LastModified Time Tobacco Smoking Status Never Smoker NED BRODY [facility], [place] - [facility] 03/16/2023 17:23:26 Which Illicit Or Recreational Drugs Have You Used? Marijuana Information not available 03/16/2023 Have You Recently Traveled Abroad? No Information not available 03/16/2023 Are You Currently In School? No Information not available 03/16/2023 Sex: Unknown Functional Status Question Answer Note LastModified by Organizat ion Details LastModified Time Do you use any illicit or recreational drugs? Yes Information not available 03/16/2023 What is your level of alcohol consumption? None Information not available 03/16/2023 Are you currently employed? Yes Information not available 03/16/2023 Mental Status None recorded. Family History Relationship [...] Diagnosis/Indication Diagnosis SNOMED-CT Code Diagnosis ICD10 Code Diagnosis IMO Codes Diagnosis Note [id number] [address] [place] [address] 05/02/2022 16:11:57 05/02/2022 16:29:49 [id number] [facility] [address] [place] [address] 03/16/2023 16:27:12 03/16/2023 18:04:44 Urethritis [id number] N34.2 [id number] [place] [facility] [address] [place] [address] 05/04/2023 08:05:57 05/04/2023 08:50:30 Chlamydial infection 169292146 A74.9 Health Concerns Section Related Observation LastModified by Organization Detai ls LastModified Time None Recorded Concern Status LastModified by Organization Details LastModified Time None Recorded Advance Directives Directive None Recorded Payers Insurance Date Sequence Insurance Name Policy Number Policy Smith Covered Member ID Smith Member ID Guarantor Name 05/04/2023 1 [facility] PLAN (MEDICAID HMO) FELIPE Weinberg [id number] Jam Weinberg Notes Date Note Type Note Provider Name and Address Organization Details Recorded Time 3 text/html Urinary Problems-MaleReported by PatientGU ProblemsFor quality, patient reportsburning. For context, patient reportssexually activeandunprotected intercourse. For associated symptoms, patient reportsburning sensation during urinationbut reportsno penile lesions/sores,no scrotal lesions/sores,no penile discharge,no flank pain,no jaundice,no blood in the urine,no change in urine appearance,no urine odor,no fever/chills,no fatigue, andno myalgia. For source of patient information, patient reportsinformation obtained from patientandpatient arrived at urgent care ambulatory. For location, patient reportspenis. For severity, patient reportsmoderate. For duration, patient reportsconstant(2 weeks.). For onset/timing, patient reportsgradual. For modifying factors, patient reportsnothing gives relief.22 year old male presenting for evaluation of [...] lab reports. Ana Silva MD [address] [place], [address], [facility] 03/17/2023 17:07:08 3 text/html Two months ago, [...] positive. [place] [address] [place], [address], [facility] 05/04/2023 09:04:42
--- OUTSIDE RECORDS SUMMARY | 2025-07-10 15:10 | XMS_ITS | Encounter Summary ---
Author Organization [facility] Address [address] [place] [address] Phone Care Team Providers Care Ship'S Captain Name Role Phone Unavailable Primary Care Provider Unavailabl e Encounter Details Date Type Department Care Team (Late st Contact Info) Description 09/13/2014 Documentation [facility] [place], [place] [phone] Family Medicine, Physician [facility] [place] [address] Social History Tobacco Use Types Packs/Day Years [...]
--- OUTSIDE RECORDS SUMMARY | 2025-07-10 15:10 | XMS_ITS | Encounter Summary ---
Author Organization [facility] Address [address] [place] [address] Phone Care Team Providers Care Car Supplier Name Role Phone Unavailable Primary Care Provider Unavailabl e Encounter Details Date Type Department Care Team (Late st Contact Info) Description 01/14/2017 Documentation [facility] [place], [place] [id number] Family Medicine, Physician [facility] [place] [address] Social History Tobacco Use Types Packs/Day Years [...]
--- OUTSIDE RECORDS SUMMARY | 2025-07-10 15:10 | XMS_ITS | Encounter Summary ---
Author Organization [facility] Address [address] [place] [address] Phone Care Team Providers Care House Father Name Role Phone Unavailable Primary Care Provider Unavailabl e Encounter Details Date Type Department Care Team (Late st Contact Info) Description 03/25/2017 Conversion Encounter [facility] - [address] [address] Social History Tobacco Use Types Packs/Day Years [...]
--- OUTSIDE RECORDS SUMMARY | 2025-07-10 15:10 | XMS_ITS | Encounter Summary ---
Author Organization [facility] Address [address] [place] [address] Phone Care Team Providers Care Sample Checker Name Role Phone Unavailable Primary Care Provider Unavailabl e Encounter Details Date Type Department Care Team (Late st Contact Info) Description 01/28/2016 Documentation [facility] [place], [place] [id number] Family Medicine, Physician [facility] [place] [address] Social History Tobacco Use Types Packs/Day Years [...]
--- OUTSIDE RECORDS SUMMARY | 2025-07-10 15:10 | XMS_ITS | Encounter Summary ---
Author Organization [facility] Address [address] [place] [address] Phone Care Team Providers Care Cementer Machine Name Role Phone Unavailable Primary Care Provider Unavailabl e Encounter Details Date Type Department Care Team (Late st Contact Info) Description 09/13/2014 Documentation [facility] [place], [place] [phone] Family Medicine, Physician [facility] [place] [address] Social History Tobacco Use Types Packs/Day Years [...]
--- OUTSIDE RECORDS SUMMARY | 2025-07-10 15:10 | XMS_ITS | Encounter Summary ---
Author Organization [facility] Address [address] [place] [address] Phone Care Team Providers Care Recycling Specialist Name Role Phone Unavailable Primary Care Provider Unavailabl e Encounter Details Date Type Department Care Team (Late st Contact Info) Description 03/24/2017 Documentation [facility] Family [facility] [place], [place] [id number] Family Medicine, Physician [address] [place] [address] Social History Tobacco Use Types Packs/Day Years [...]
--- OUTSIDE RECORDS SUMMARY | 2025-07-10 15:10 | XMS_ITS | Encounter Summary ---
Author Organization [facility] Address [address] [place] [address] Phone Care Team Providers Care Laundry Clerk Name Role Phone Unavailable Primary Care Provider Unavailabl e Encounter Details Date Type Department Care Team (Late st Contact Info) Description 09/26/2014 Documentation [facility] [place], [place] [phone] Family Medicine, Physician [facility] [place] [address] Social History Tobacco Use Types Packs/Day Years [...]
== END 2025-07-10 14:28 | disposition home or self-care (01) ==
PROVIDERS: PCP Nurse Practitioner Family; Visit Provider Nurse Practitioner Family
DX: D64.9 Anemia, unspecified (principal); D72.819 Decreased white blood cell count, unspecified; F90.9 Attention-deficit hyperactivity disorder, unspecified type